=== PATIENT | female | born 1960 | race Caucasian/White ===

== ENCOUNTER 2017-04-18 12:13 | Observation (INO) | payer BC ==
--- NOTE | ~2017-04-18 | HP ---
History And Physical [place] [address] [facility] [place]. [address] NAME: JOSE CALLOWAY : 62 STATUS : ADM [place] PAT#: [id number] AGE: 57 ADM/REG DATE : 04/18/17 MR#: [id number] REPORT SERV DATE: 04/19/17 DICTATED BY: MARIA LUISA PINTO DATE: 04/18/17 REPORT STATUS : Draft TRANSCRIBED BY: MODNadine DATE: 04/18/17 DATE OF ADMISSION: 04/18/2017 CHIEF COMPLAINT: Abdominal pain. HISTORY OF PRESENT ILLNESS: This is a 57-year-old female with medical history significant for microscopic colitis, asthma, gastroesophageal reflux disease, and migraine headaches who presented to the hospital with complaints of low abdominal pain of a day duration. The patient reported that she woke up around 6 a.m. on the morning of presentation and suddenly noticed a sharp lower abdominal pain, it was 10/10 in severity and constant, radiating to bilateral flanks all the way to the back. No known aggravating factor. Initially relieved by standing. However, the pain persisted, became most severe, and decided to come to the emergency room for further evaluation. On arrival to the ER, she was given two doses of IV Dilaudid, pain improved from 10/10 to 4/10. She developed an episode of nausea and vomiting. No associated frequency, urgency, and hematuria. No associated dysuria. No prior history of kidney stones. She denies any associated diarrhea or constipation. She denies any unusual weight loss. She denies any history of sick contacts. She denies any history of consuming any unusual meal. She denies any history of recent travel. The patient has not had any similar episodes in the past. The patient had a CT of the abdomen and pelvis that was concerning for partial small bowel obstruction. Hence, the Hospitalist Service was consulted to admit the patient for further management. PAST MEDICAL HISTORY: 1. Microscopic colitis. The patient follows up with Gastroenterology, , and had colonoscopy and endoscopy in the past, otherwise especially normal. 2. Asthma. 3. Gastroesophageal reflux disease. 4. Migraine headaches. PAST SURGICAL HISTORY: 1. Right ovariectomy. 2. Appendectomy. ALLERGY HISTORY: No known drug allergies. The patient is lactose intolerance. FAMILY HISTORY: Significant for history of multiple myeloma and lymphoma in the father. Mother of complications of CVA. Her grandparents who also of history of pancreatic cancer. No history of colon cancer in the family. SOCIAL HISTORY: The patient drinks 1-2 glasses of wine a day. She denies any history of alcohol abuse. Denies any history of illicit drug use. The patient is currently and has three kids. She works as an computer systems software architect. History And Physical [address] [address] NAME: JOSE CALLOWAY : 62 STATUS : ADM [place] PAT#: [id number] AGE: 57 ADM/REG DATE : 04/18/17 MR#: [id number] REPORT SERV DATE: 04/19/17 DICTATED BY: MARIA LUISA PINTO DATE: 04/18/17 REPORT STATUS : Draft TRANSCRIBED BY: ADRIANA DATE: 04/18/17 REVIEW OF SYSTEMS: Twelve-point review of systems performed essentially negative. Positive findings as per HPI. PHYSICAL EXAMINATION: VITAL SIGNS: Blood pressure 130/65, temperature 98.3, pulse 60 beats per minute, respiration 16 cycles per minute, saturating 98% on room air. GENERAL: In mild distress due to pain. HEENT: Extraocular muscles intact. Pupils equal, round, and reactive. Not pale. Anicteric. Oral mucosa dry. NECK: Supple. No JVD. CHEST: Equal expansion, nontender. LUNGS: Clear to auscultation bilaterally. No wheezes. No rhonchi. No crackles. HEART: Regular rate and rhythm. S1 and S2. No murmurs, no rubs, no gallops. ABDOMEN: Bowel sound normoactive. Tenderness in lower abdominal region and more severe also in the left lower quadrant. No rebound. No guarding. No palpably enlarged organomegaly. EXTREMITIES: No pedal edema. LABORATORY DATA: Comprehensive metabolic panel: Sodium 141, potassium 4.3, chloride 107, bicarb 29, BUN 14, creatinine 0.63, GFR 100, glucose 122, calcium 9.0, total protein 7.5, albumin 4.3, globulin 3.2, total bilirubin 1.8. Alkaline phosphatase 69, ALT 26, AST 20, lipase 98. Hematology: WBC 6.2, hemoglobin 14.6, hematocrit 43.7, platelet 279. CT of the abdomen and pelvis: Impression: Mildly prominent loops of mild small bowel within the lower abdomen and pelvis containing small stool-like material. There is a focally narrow segment within the left side of the pelvis, which may represent a transition point or may be related to contraction/peristalsis. There is also edema in the adjacent mesentery. Findings are concerning for a potential early/low-grade small bowel obstruction or less likely localized enteritis. If indicated, a followup CT exam with IV and enteric contrast or small bowel follow-through may be helpful for further evaluation. 1. Small free fluid in the pelvis. ASSESSMENT: 1. Partial small-bowel obstruction as noted on CT. 2. Abdominal pain. 3. Nausea. 4. Hyperbilirubinemia. 5. History of microscopic colitis. 6. History of asthma. 7. History of gastroesophageal reflux disease. 8. History of migraine headaches. PLAN: 1. Partial small-bowel obstruction. I have recommended to make the patient n.p.o. to place a nasogastric tube for symptomatic relief. This will be connected to intermittent low suction, and the patient will be closely monitored. I have History And Physical [address] [place]. [address] NAME: JOSE CALLOWAY : 62 STATUS : ADM [place] PAT#: [id number] AGE: 57 ADM/REG DATE : 04/18/17 MR#: [id number] REPORT SERV DATE: 04/19/17 DICTATED BY: MARIA LUISA PINTO DATE: 04/18/17 REPORT STATUS : Draft TRANSCRIBED BY: MODNadine DATE: 04/18/17 recommended serial abdominal examination. A KUB will be performed in the morning. If the patient's symptoms continued to persist or continue to get worse, we will consult General surgery for further evaluation. At this time, we will continue to treat the patient symptomatically. I have also ordered a UA and urine culture as well as a test. The patient will be admitted under the Hospitalist Service and will continue to be monitored closely. 2. Hyperbilirubinemia, total bilirubin of 1.8. I will order a fractionated bilirubin at this point. I will also repeat the patient's bilirubin in the morning. If the patient's bilirubin continues to remain elevated, we will order a right upper quadrant ultrasound. 3. History of microscopic colitis, the patient takes Welchol at home. We will resume Welchol when the patient is able to tolerate p.o. 4. History of depression. No suicidal or homicidal ideation. We will resume patient's home citalopram when able to tolerate p.o. 5. DVT prophylaxis with heparin subcu. CODE STATUS: Full code. ADMISSION DISPOSITION: Med/surg. ADMISSION STATUS: Hospitalization. IOO/MODL Maria Luisa Pinto MD / [id number] CC: Rodrigo Mcmahan M.D.
--- NOTE | ~2017-04-18 | DS ---
Discharge Summary [place] [id number] [place]. [address] NAME: JOSE CALLOWAY : 62 STATUS : DIS [place] PAT#: [id number] AGE: 57 ADM/REG DATE : 04/18/17 MR#: [id number] REPORT SERV DATE: 04/20/17 DICTATED BY: MACY MAHONEY DATE: 04/19/17 REPORT STATUS : Draft TRANSCRIBED BY: MODL DATE: 04/19/17 ADMISSION DATE: 04/18/2017 DISCHARGE DATE: 04/19/2017 DISCHARGE DIAGNOSES: 1. Partial small bowel obstruction. 2. Fecal stasis. 3. History of microscopic colitis. HISTORY OF PRESENT ILLNESS: This is a 57-year-old female patient, who came to the hospital with severe abdominal pain. Please see dictated H and P. HOSPITAL COURSE: She was admitted to hospital with partial small bowel obstruction and was put on aggressive hydration. She feels a lot better. Also, CT scan showed the fecal stasis and repeated KUB did not show any obstruction pattern of the gas. She does not have any symptoms of obstruction at this point. We are going to advance diet and explain the patient about a mild laxative use for this fecal impaction. She voiced understanding. Will be discharged with milk of magnesia 15 mL twice a day for the next three days with more hydration and she voiced understanding. DISPOSITION: The patient is discharged to home in stable condition with the same home medications, but we are giving the prescription of the milk of magnesia. DICTATED BY: Mickey Garnica/ADRIANA Macy Mahoney M.D. / [id number] CC: Mickey Garnica M.D. Alan Shikoh, M.D.
[2017-04-18 11:04] LABS: BASOPHILS 0.5 %; BASOPHILS ABSOLUTE 0.03 10/3/uL (0.0-0.16); EOSINOPHILS 1.6 %; HEMATOCRIT 43.7 % (36.0-48.0); HEMOGLOBIN 14.6 g/dL (12.0-16.0); IMMATURE GRANULOCYTES 0.2 %; IMMATURE GRANULOCYTES ABSOLUTE 0.01 10/3/uL (0.0-0.11); LYMPHOCYTES 28.1 %; LYMPHOCYTES ABSOLUTE 1.73 10/3/uL (0.67-4.30); MEAN CORPUS HGB CONC 33.4 g/dL (32.0-36.0); MEAN CORPUSCULAR HEMOGLOB 29.7 pg (26.0-34.0); MEAN CORPUSCULAR VOLUME 88.8 fL (80-100); MEAN PLATELET VOLUME 9.2 fL (9.2-13.0); MONOCYTES 7.8 %; MONOCYTES ABSOLUTE 0.48 10/3/uL (0.21-1.20); NEUTROPHILS 61.8 %; PLATELET COUNT 279 10/3/uL (150-400); RBC DISTRIBUTION WIDTH 12.8 % (12.0-16.0); RED CELL COUNT 4.92 10/6/uL (4.0-5.6); WHITE BLOOD CELLS 6.2 10/3/uL (4.5-10.5)
[2017-04-18 11:05] LABS: MANUAL DIFF NO %
[2017-04-18 11:21] LABS: A/G RATIO 1.3 (0.7-1.9); ALBUMIN 4.3 G/DL (3.5-5.0); ALKALINE PHOSPHATASE 69 U/L (45-117); BUN (BLOOD UREA NITROGEN) 14 MG/DL (6-23); CHLORIDE, SERUM 107 MMOL/L (96-112); CO2 (CARBON DIOXIDE) 29 MMOL/L (24-34); CREATININE 0.63 MG/DL (0.55-1.02); GFR AFRICAN AMERICAN 116 ML/MIN (>=60); GFR NON AFRICAN AMERICAN 100 ML/MIN (>=60); GLOBULIN 3.2 G/DL (2.5-4.1); GLUCOSE, SERUM 122 MG/DL (60-99); POTASSIUM, SERUM 4.3 MMOL/L (3.5-5.3); SGOT(AST) 20 U/L (5-40); SGPT(ALT) 26 U/L (5-65); SODIUM, SERUM 141 MMOL/L (135-148); TOTAL BILIRUBIN 1.8 MG/DL (0-1.2); TOTAL PROTEIN 7.5 G/DL (6.0-8.5)
[2017-04-18] MEDS ORDERED: SYMBICORT 80/4.1 INH INH ×2 (12:30)
[2017-04-18] MEDS ORDERED: COMBIVENT RESPIM4 GM INH (12:30)
[2017-04-18] MEDS ORDERED: SINGULAIR1 PO (12:32)
[2017-04-18] MEDS ORDERED: PROAIRRESP INH (12:32)
[2017-04-18] MEDS ORDERED: WELCHOL 625 MG625 MG PO (12:32)
[2017-04-18] MEDS ORDERED: CELEXA20 PO (12:32)
[2017-04-18] MEDS ORDERED: PRILO PO (12:33)
[2017-04-18] MEDS ORDERED: IMITREX100 MG PO (12:33)
[2017-04-18] MEDS ORDERED: VITAMIN D31000 UNIT PO (12:34)
[2017-04-18] MEDS ORDERED: CALTRA600D PO (12:34)
[2017-04-18] MEDS ORDERED: KENCR.1 TOP (12:35)
[2017-04-18] MEDS ORDERED: KETOCONAZOLE SHAMPOO TOP (12:36)
[2017-04-18] MEDS ORDERED: REFRESH OPH (12:38)
[2017-04-18 17:00] LABS: ASCORBIC ACID (UR NOT ORDER) NEG (NEG); BILIRUBIN, URINE NEGATIVE (NEG); ER URINALYSIS TAT 0 Hrs 14 Mins; KETONE, URINE TRACE MG/DL (NEG); LEUKOCYTE ESTERASE(NOT OR TRACE (NEG); NITRITE (URINE) NEG (NEG); WBC (NOT ORDERED) (RFLEX) 1 (0-5)
[2017-04-18 17:07] LABS: FREE T4 1.01 NG/DL (0.76-1.46); PHOSPHORUS, SERUM 2.7 MG/DL (2.5-4.5); ULTRASENSITIVE TSH 1.08 MCIU/ML (0.358-3.740)
[2017-04-19 05:11] LABS: BASOPHILS 0.4 %; BASOPHILS ABSOLUTE 0.02 10/3/uL (0.0-0.16); EOSINOPHILS 1.8 %; HEMATOCRIT 41.1 % (36.0-48.0); HEMOGLOBIN 13.6 g/dL (12.0-16.0); IMMATURE GRANULOCYTES 0.2 %; IMMATURE GRANULOCYTES ABSOLUTE 0.01 10/3/uL (0.0-0.11); LYMPHOCYTES 37.2 %; LYMPHOCYTES ABSOLUTE 2.03 10/3/uL (0.67-4.30); MEAN CORPUS HGB CONC 33.1 g/dL (32.0-36.0); MEAN CORPUSCULAR HEMOGLOB 30.1 pg (26.0-34.0); MEAN CORPUSCULAR VOLUME 90.9 fL (80-100); MEAN PLATELET VOLUME 9.7 fL (9.2-13.0); MONOCYTES 9.2 %; NEUTROPHILS 51.2 %; NEUTROPHILS ABSOLUTE 2.79 10/3/uL (2.02-8.40); PLATELET COUNT 233 10/3/uL (150-400); RBC DISTRIBUTION WIDTH 12.7 % (12.0-16.0); RED CELL COUNT 4.52 10/6/uL (4.0-5.6); WHITE BLOOD CELLS 5.5 10/3/uL (4.5-10.5)
[2017-04-19 05:14] LABS: MANUAL DIFF NO %
[2017-04-19 05:28] LABS: CALCIUM, SERUM 8.4 MG/DL (8.5-10.4); CHLORIDE, SERUM 112 MMOL/L (96-112); CO2 (CARBON DIOXIDE) 27 MMOL/L (24-34); CREATININE 0.54 MG/DL (0.55-1.02); GFR AFRICAN AMERICAN 122 ML/MIN (>=60); GFR NON AFRICAN AMERICAN 105 ML/MIN (>=60); POTASSIUM, SERUM 3.6 MMOL/L (3.5-5.3); SODIUM, SERUM 145 MMOL/L (135-148)
[2017-04-19 05:29] LABS: ALBUMIN 3.4 G/DL (3.5-5.0); BUN (BLOOD UREA NITROGEN) 10 MG/DL (6-23); GLUCOSE, SERUM 87 MG/DL (60-99)
[2017-04-19] MEDS ORDERED: MIRALAX POWDER1 PKT PO (14:14)
[2017-04-19] MEDS ORDERED: MOMUD PO (14:16)
== END 2017-04-19 15:40 | disposition home or self-care (01) ==
LOC: ER 12:13 → CDU1 14:09
PROVIDERS: Hospitalist; Nurse Practitioner Acute Care
DX: K56.60 Unspecified intestinal obstruction (principal); K21.9 Gastro-esophageal reflux disease without esophagitis; J45.909 Unspecified asthma, uncomplicated; K52.839 Microscopic colitis, unspecified; Z90.49 Acquired absence of other specified parts of digestive tract; G43.909 Migraine, unspecified, not intractable, without status migrainosus; Z90.721 Acquired absence of ovaries, unilateral
CPT/HCPCS: 74000; 74176; 80053; 80069; 81001; 82150; 83605; 83690; 83735; 84100; 84439; 84443; 85025; 93005; 94640; 96372; 96374; 96375; 96376; 99285; A9270-GY; G0378; J1170; J2405